=== PATIENT | female | born 1995 | race African-American/Black ===

== ENCOUNTER 2021-02-16 08:42 | Emergency (ER) | payer OTHER ==
[~2021-02-16] VITALS: Ht 162.6 cm; Wt 52.8 kg
[2021-02-16 09:31] LABS: BASO % 0.5 % (0.0-1.0); EOS # 0.3 10^3/uL (0.0-0.5); EOS % 5.5 % (0.0-3.0); HEMATOCRIT 35.8 % (36.0-47.0); HEMOGLOBIN 12.8 g/dl (12.0-15.5); LYMPH # 1.6 10^3/uL (1.5-5.0); LYMPH % 26.8 % (24.0-44.0); MEAN CORPUSCULAR HEMOGLOBIN 28.8 pg (27.0-33.0); MEAN CORPUSCULAR HGB CONC 35.8 g/dl (32.0-36.5); MEAN CORPUSCULAR VOLUME 80.6 fl (80.0-96.0); MONO # 0.7 10^3/uL (0.0-0.8); MONO % 11.1 % (2.0-8.0); NEUTROPHILS # 3.4 10^3/uL (1.5-8.5); NEUTROPHILS % 55.9 % (36.0-66.0); PLATELET COUNT, AUTOMATED 321 10^3/uL (150-450); RED BLOOD COUNT 4.44 10^6/uL (4.00-5.40)
[2021-02-16 09:54] LABS: ALBUMIN 3.4 GM/DL (3.2-5.2); ALT/SGPT 23 U/L (12-78); BILIRUBIN,TOTAL 0.6 MG/DL (0.2-1.0); BLOOD UREA NITROGEN 13 MG/DL (7-18); C REACTIVE PROTEIN QUANTITATIV 1.55 MG/DL (0.00-0.30); CALCIUM LEVEL 9.1 MG/DL (8.5-10.1); CARBON DIOXIDE LEVEL 26 MEQ/L (21-32); CHLORIDE LEVEL 108 MEQ/L (98-107); CREATININE FOR GFR 0.44 MG/DL (0.55-1.30); GLOMERULAR FILTRATION RATE > 60.0 (>60); GLUCOSE, FASTING 90 MG/DL (70-100); POTASSIUM SERUM 4.5 MEQ/L (3.5-5.1); RHEUMATOID FACTOR QUANT < 10.0 IU/ML (<15.0); SODIUM LEVEL 140 MEQ/L (136-145); TOTAL PROTEIN 7.9 GM/DL (6.4-8.2)
[2021-02-16 10:07] LABS: ERYTHROCYTE SEDIMENTATION RATE 39 mm/hr (0-20)
--- NOTE | 2021-02-16 13:36 | REP ---
INDICATION: facial droop/ptosis/forehead spared ?central etiology. COMPARISON: None. TECHNIQUE: Axial and sagittal imaging planes are utilized for T1 and T2-weighted scans. Sequences include spin-echo, fast spin echo, FLAIR, and diffusion weighted sequences. FINDINGS: No bony calvarial lesion is seen. Craniocervical junction and upper cervical cord are normal in appearance. There is no MR evidence of significant paranasal sinus disease. No intraorbital abnormality is seen. The lateral, third, and fourth ventricles are normal in size and position. Sanderson-white differentiation pattern is intact above and below the tentorium. There is no evidence of intracranial hemorrhage. No mass, infarction, extra-axial fluid collection or midline shift is seen. No abnormal white matter lesion is seen. IMPRESSION: Negative noncontrast brain MRI study. <Electronically signed by Juanpablo Harden > 02/16/21 [id number]
--- NOTE | 2021-02-16 13:38 | REP ---
INDICATION: FACIAL DROOP. COMPARISON: None. TECHNIQUE: 3-D [id number] MR angiography of the brain is acquired in the usual fashion and maximal intensity projection images were generated in rotational format about the vertical and horizontal axes. In addition, source axial T1-weighted images are viewed in cine mode. FINDINGS: The distal vertebral arteries are patent and co-dominant. Basilar artery is a little tortuous but widely patent. The posterior cerebral and superior cerebellar vessels are normal and symmetric. The distal internal carotid arteries are unremarkable. Anterior and middle cerebral arteries appear intact. There is no visible broderick aneurysm or arteriovenous malformation. IMPRESSION: Unremarkable MR angiography the brain. <Electronically signed by Juanpablo Harden > 02/16/21 [id number]
[2021-02-16] MEDS ORDERED: PRED10TA2 PO (13:53)
[2021-02-16] MEDS ORDERED: BACIOIN23 OP (13:53)
[2021-02-16] MEDS ORDERED: VALA1TAB5 PO (13:56)
[2021-02-16 14:20] VITALS: BP 124/76
[2021-02-19 16:08] LABS: ANTI DOUBLE STRAND-DNA AB <1 IU/mL (0-9); ANTINUCLEAR ANTIBODIES DIRECT Positive (Negative); Lyme Disease IgG Ab 18 kDa Ban Absent (.); Lyme Disease IgG Ab 23 kDa Ban Present (.); Lyme Disease IgG Ab 28 kDa Ban Absent (.); Lyme Disease IgG Ab 30 kDa Ban Absent (.); Lyme Disease IgG Ab 39 kDa Ban Absent (.); Lyme Disease IgG Ab 41 kDa Ban Present (.); Lyme Disease IgG Ab 45 kDa Ban Absent (.); Lyme Disease IgG Ab 58 kDa Ban Absent (.); Lyme Disease IgG Ab 66 kDa Ban Absent (.); Lyme Disease IgG Ab 93 kDa Ban Present (.); Lyme Disease IgG West Blot Int Negative (.); Lyme Disease IgG/IgM Antibodie 1.81 ISR (0.00-0.90); Lyme Disease IgM Ab 23 kDa Ban Present (.); Lyme Disease IgM Ab 39 kDa Ban Absent (.); Lyme Disease IgM Ab 41 kDa Ban Present (.); Lyme Disease IgM Ab Quantitati 5.98 index (0.00-0.79); Lyme Disease IgM West Blot Int Positive (.); RNP ANTIBODIES >8.0 AI (0.0-0.9); SJOGREN'S ANTI SS-A <0.2 AI (0.0-0.9); SJOGREN'S ANTI SS-B <0.2 AI (0.0-0.9); SMITH ANTIBODIES <0.2 AI (0.0-0.9)
== END 2021-02-16 14:21 | disposition home or self-care (01) ==
LOC: M ED 08:42
DX: G51.0 Bell's palsy (principal)

== ENCOUNTER 2021-02-22 07:47 | Emergency (ER) | payer OTHER ==
[~2021-02-22] VITALS: Ht 162.6 cm; Wt 53.6 kg
[~2021-02-22 07:47] MED LIST: BACIOIN23 OP; PRED10TA2 PO; VALA1TAB5 PO
[2021-02-22] MEDS ORDERED: ONDANSETRON 4MG/2ML VIAL IV ONE (08:10)
[2021-02-22] MEDS ORDERED: NS 1,000 ML IV ONE (08:10)
[2021-02-22] MEDS ORDERED: PANTOPRAZOLE 40MG VIAL (C9113 PER 1) IV ONE (08:10)
[2021-02-22 08:42] LABS: BASO # 0.1 10^3/uL (0.0-0.2); BASO % 0.4 % (0.0-1.0); EOS # 0.2 10^3/uL (0.0-0.5); EOS % 1.5 % (0.0-3.0); HEMATOCRIT 33.5 % (36.0-47.0); HEMOGLOBIN 11.9 g/dl (12.0-15.5); LYMPH # 1.2 10^3/uL (1.5-5.0); LYMPH % 9.6 % (24.0-44.0); MEAN CORPUSCULAR HEMOGLOBIN 28.7 pg (27.0-33.0); MEAN CORPUSCULAR HGB CONC 35.5 g/dl (32.0-36.5); MEAN CORPUSCULAR VOLUME 80.7 fl (80.0-96.0); MONO # 0.5 10^3/uL (0.0-0.8); MONO % 4.1 % (2.0-8.0); NEUTROPHILS # 10.8 10^3/uL (1.5-8.5); NEUTROPHILS % 83.9 % (36.0-66.0); PLATELET COUNT, AUTOMATED 254 10^3/uL (150-450); RED BLOOD COUNT 4.15 10^6/uL (4.00-5.40); WHITE BLOOD COUNT 12.9 10^3/uL (4.0-10.0)
[2021-02-22] MEDS ORDERED: DOXY100C PO (08:56)
[2021-02-22 09:05] LABS: ALT/SGPT 28 U/L (12-78); BILIRUBIN,DIRECT 0.2 MG/DL (0.0-0.2); BILIRUBIN,TOTAL 0.7 MG/DL (0.2-1.0); BLOOD UREA NITROGEN 9 MG/DL (7-18); CALCIUM LEVEL 8.6 MG/DL (8.5-10.1); CARBON DIOXIDE LEVEL 28 MEQ/L (21-32); CHLORIDE LEVEL 104 MEQ/L (98-107); CREATININE FOR GFR 0.61 MG/DL (0.55-1.30); GLOMERULAR FILTRATION RATE > 60.0 (>60); GLUCOSE, FASTING 102 MG/DL (70-100); POTASSIUM SERUM 3.6 MEQ/L (3.5-5.1); SODIUM LEVEL 138 MEQ/L (136-145); TOTAL PROTEIN 7.4 GM/DL (6.4-8.2)
[2021-02-22] MEDS ORDERED: ONDA4TAB6 PO (11:05)
[2021-02-22 11:08] VITALS: BP 99/56
--- NOTE | 2021-02-22 16:50 | ECGEPIP ---
[facility] - ED Test Date: 2021-02-22 Pat Name: JIA CALERO Department: Room: - Gender: Female Director Of Counseling: paola : 1995 Requested By: LATISHA PISANO PA-C. Order Number: [id number] Reading MD: Pancho Pickering Measurements Intervals [place] Rate: 99 P: 50 UT: 146 QRS: 59 QRSD: 78 T: -6 QT: 312 QTc: 400 Interpretive Statements Normal sinus rhythm Nonspecific T wave abnormality Comparison tracing not on file Electronically Signed on 02-22-2021 16:50:21 EDT by Pancho Pickering
== END 2021-02-22 11:10 | disposition home or self-care (01) ==
LOC: M ED 07:47
DX: T78.2XXA Anaphylactic shock, unspecified, initial encounter (principal); A69.20 Lyme disease, unspecified; G51.0 Bell's palsy; Z79.899 Other long term (current) drug therapy
CPT/HCPCS: 36415; 80048; 80076; 84702; 85025; 93005; 96361; 96374; 96375; 99284; C9113; J2405

== ENCOUNTER 2022-04-18 12:53 | Emergency (ER) | payer OTHER ==
[~2022-04-18] VITALS: Ht 162.6 cm; Wt 54.6 kg
[~2022-04-18 12:53] MED LIST changes: +DOXY100C3 PO; +ONDA4TAB6 PO
[2022-04-18 15:38] VITALS: BP 102/77
== END 2022-04-18 15:39 | disposition home or self-care (01) ==
LOC: M ED 12:53
DX: S63.92XA Sprain of unspecified part of left wrist and hand, initial encounter (principal); X50.0XXA Overexertion from strenuous movement or load, initial encounter

== ENCOUNTER 2022-10-20 17:01 | Emergency (ER) | payer OTHER ==
[~2022-10-20] VITALS: Ht 157.5 cm; Wt 51.4 kg
[2022-10-20 17:02] VITALS: BP 96/62
[2022-10-20 18:38] LABS: RSV AMPLIFICATION NEGATIVE (NEGATIVE)
[2022-10-20] MEDS ORDERED: LIDOCAINE VISCOUS 2% SOLN 15ML UDC SS ONE (19:30)
[2022-10-20] MEDS ORDERED: PENICILLIN V POTASSIUM 500 MG TAB PO ONE (19:30)
[2022-10-20] MEDS ORDERED: ACETAMINOPHEN 500 MG TAB PO ONE (19:30)
[2022-10-20] MEDS ORDERED: IBUP-1022 PO (19:34)
[2022-10-20] MEDS ORDERED: LIDO15SO4 PO (19:34)
[2022-10-20] MEDS ORDERED: PENI500T PO (19:34)
== END 2022-10-20 19:46 | disposition home or self-care (01) ==
LOC: M ED 17:01
DX: J02.0 Streptococcal pharyngitis (principal); R50.9 Fever, unspecified

== ENCOUNTER 2022-11-05 08:35 | Emergency (ER) | payer OTHER ==
[~2022-11-05] VITALS: Ht 162.6 cm; Wt 53.7 kg
[~2022-11-05 08:35] MED LIST changes: +IBUP-1022 PO; +LIDO15SO4 PO; +PENI500T PO
[2022-11-05 09:05] LABS: URINE PREG TEST NEGATIVE (NEGATIVE)
[2022-11-05] MEDS ORDERED: CEPHALEXIN 500 MG CAP PO ONE (10:45)
[2022-11-05] MEDS ORDERED: PHENAZOPYRIDINE 100 MG TAB PO ONE (10:45)
[2022-11-05] MEDS ORDERED: CEPH25SS PO (10:47)
[2022-11-05] MEDS ORDERED: PYRI1TAB5 PO (10:47)
[2022-11-05 11:15] VITALS: BP 110/72
== END 2022-11-05 11:20 | disposition home or self-care (01) ==
LOC: M ED 08:35
DX: N30.01 Acute cystitis with hematuria (principal)